=== PATIENT | female | born 1985 | race Caucasian/White ===

== ENCOUNTER 2017-02-11 22:45 | Emergency (ER) | payer BC ==
--- NOTE | ~2017-02-11 | ER ---
PATIENT'S NAME: MARCELO CUTLER [facility] AGE: 31 Y [address] ROOM: [place] [address] LOCATION: [facility] ADMIT DATE: 02/11/2017 ER/Outpatient Report DISCHARGE DATE: 02/12/2017 FAMILY PHYSICIAN: Physician, Unknown ATTENDING PHYSICIAN: Shai Zheng Time of Arrival: 2245 hours. Time of Evaluation: 2246 hours. CHIEF COMPLAINT: Right lower quadrant abdominal pain. HISTORY OF PRESENT ILLNESS: The patient is a 31-year-old female, who presents to the emergency department today with chief complaint of right lower quadrant abdominal pain. She reports this started about 1 hour prior to arrival. Reports she has had some nausea. Denies any urinary frequency, urgency, or painful urination. The patient reports she felt pop and had pain. Pain is currently moderate in severity, it is sharp. PAST MEDICAL HISTORY: None. PAST SURGICAL HISTORY: Right ovary. Last menstrual period was on 01/19. SOCIAL HISTORY: The patient denies any tobacco, alcohol, or illicit drug use. ALLERGIES: NO KNOWN DRUG ALLERGIES. MEDICATIONS: None. PRIMARY CARE DOCTOR: [facility]. REVIEW OF SYSTEMS: All systems are reviewed by myself and are negative with the exception of those discussed in the HPI and past medical history. PHYSICAL EXAMINATION: PATIENT'S NAME: MARCELO CUTLER [facility] AGE: 31 Y [address] ROOM: [place] [address] LOCATION: [facility] ADMIT DATE: 02/11/2017 ER/Outpatient Report DISCHARGE DATE: 02/12/2017 FAMILY PHYSICIAN: Physician, Unknown ATTENDING PHYSICIAN: Shai Zheng VITAL SIGNS: Weight 144.3 kg. Blood pressure 157/73, pulse 68, respiratory rate 20, temperature 98.7, and oxygen saturation 100% on room air. GENERAL: The patient is a 31-year-old female, obese, in [id number] acute distress secondary to pain in her abdomen. HEENT: Normocephalic, atraumatic. Pupils are equal, round, and reactive to light. NECK: Supple. There is no nuchal rigidity. CARDIOVASCULAR: Regular rate and rhythm. No murmurs, rubs, or gallops. LUNGS: Clear to auscultation bilaterally. No wheezes, rales, or rhonchi. ABDOMEN: Soft. Mild right lower quadrant tenderness to palpation. There is no rebound, rigidity, or guarding. Positive bowel sounds. MUSCULOSKELETAL: The patient moves all 4 extremities. SKIN: Warm and dry. There are no rashes or lesions noted. LABORATORY DATA AND X-RAYS: CBC is normal. CMP is normal except for an AST of 65 and ALT of 110. Lactate is normal. Urinalysis shows 15 protein, 10 blood. Serum hCG is less than 1. Procalcitonin is less than 0.05. CT scan of the abdomen and pelvis is obtained. It is interpreted by [facility]. It does show a fatty liver, otherwise negative. IMPRESSION: 1. Acute right lower quadrant abdominal pain, improved. 2. Elevated liver enzymes with fatty infiltration on CT scan. 3. Initial visit. EMERGENCY DEPARTMENT COURSE: The patient is brought back to the examination room. Seen and evaluated by myself. IV is established. Laboratory analysis and imaging are obtained as described above. The patient is given 4 mg of Zofran IV as well as 15 mg of Toradol IV. This has resulted in resolution of the patient's symptoms. Her abdominal exam is repeated. She continues to have a nonsurgical abdominal exam at this time. I have discussed results with the patient. Recommended close followup with primary care doctor for re-evaluation. I recommended Tylenol or ibuprofen as needed for pain. Discussed [id number] instructions including worsening of symptoms or any other concerns to return to the emergency department as soon as possible. The patient is agreeable without further questions at this time. DISPOSITION: The patient is discharged to home in good condition. PATIENT'S NAME: MARCELO CUTLER [facility] AGE: 31 Y [address] ROOM: [place], [place] [address] LOCATION: [facility] ADMIT DATE: 02/11/2017 ER/Outpatient Report DISCHARGE DATE: 02/12/2017 FAMILY PHYSICIAN: Physician, Unknown ATTENDING PHYSICIAN: Shai Zheng DO MEI GUZMAN/faby /[id number] d: 02/12/17 0237 t: 02/14/17 1845, OUTPATIENT REPORT
[2017-02-11 23:27] LABS: BASOPHIL # 0.1 K/uL (0.0-0.2); BASOPHIL % 0.6 %; EOSINOPHIL # 0.1 K/uL (0.0-0.5); EOSINOPHIL % 0.8 %; HEMATOCRIT 36.2 % (33.0-46.0); HEMOGLOBIN 12.2 g/dL (11.0-15.0); IMMATURE GRANULOCYTE % 0.2 %; LYMPHOCYTE # 3.1 K/uL (0.8-4.0); MCHC 33.7 gm/dL (32.0-36.5); MONOCYTE # 0.6 K/uL (0.0-1.0); MONOCYTE % 5.7 %; MPV 10.8 fl (9.4-12.4); NEUTROPHIL # (ANC) 6.8 K/uL (1.8-7.8); NEUTROPHIL % 63.7 %; NRBC % 0 /100WBC (0-0.00); PLATELET COUNT 245 K/uL (150-450); RBC 4.36 M/uL (3.50-5.50); WBC 10.7 K/uL (4.0-11.0)
[2017-02-11 23:47] LABS: ALBUMIN 3.6 gm/dL (3.5-5.0); ALK PHOS 110 IU/L (33-138); ALT 110 IU/L (12-78); ANION GAP 11.8 (10.0-19.0); AST 65 IU/L (10-40); BLOOD UREA NITROGEN 14 mg/dL (6-24); CALCIUM 8.8 mg/dL (8.5-10.5); CHLORIDE 106 mMol/L (96-110); CO2 25 mMol/L (22-32); CREATININE 0.8 mg/dL (0.5-1.1); POTASSIUM 3.8 mMol/L (3.7-5.1); SODIUM 139 mMol/L (135-145); TOTAL BILIRUBIN 0.4 mg/dL (0.0-1.5); TOTAL PROTEIN 7.2 g/dL (6.0-8.4)
[2017-02-11 23:57] LABS: BILIRUBIN URINE NEGATIVE (NEGATIVE); BLOOD URINE 10 /UL (NEGATIVE); COLOR URINE YELLOW (YELLOW); GLUCOSE URINE NEGATIVE (NEGATIVE); KETONE URINE NEGATIVE (NEGATIVE); LEUKOCYTES URINE NEGATIVE /UL (NEGATIVE); NITRITE URINE NEGATIVE (NEGATIVE); PROTEIN URINE 15 mg/dL (NEGATIVE); SPEC GRAVITY URINE 1.025 (1.003-1.035); TURBIDITY URINE CLEAR (CLEAR); UROBILINOGEN URINE NORMAL (NORMAL)
[2017-02-12 00:05] LABS: BACTERIA URINE NEGATIVE (NEGATIVE); EPITHELIAL URINE 0-2 #/HPF (NEGATIVE); MUCUS URINE 1+ (NEGATIVE); RBC URINE 0-2 #/HPF (NEGATIVE); WBC URINE NEGATIVE #/HPF (NEGATIVE)
== END 2017-02-12 01:08 | disposition disaster alternative care site (69) ==
LOC: GMED 22:45
PROVIDERS: Emergency Medicine
DX: R10.31 Right lower quadrant pain (principal); R74.8 Abnormal levels of other serum enzymes
CPT/HCPCS: J1885; J2405; J7030; Q9967